=== PATIENT | female | born 1940 | race Caucasian/White ===

== ENCOUNTER 2016-03-09 15:41 | Observation (INO) | payer OTHER ==
[2016-03-09] VITALS (9 sets, daily range): BP systolic 99–146; BP diastolic 54–74; PULSE 64–86; RESP 17–27; TEMP 98.2–98.7; O2SAT 89–98
[~2016-03-09 15:41] MED LIST: AMLO2.5T PO; BUME1TAB PO; ISOS60TA PO; LOSA25TA PO; METF500T PO; PANT40TA3 PO; PLAV75TA29 PO; TOLT1CAP PO; TRIA37.5 PO
--- NOTE | 2016-03-09 16:08 | PD ---
HPI Chief Complaint: Cold / Flu Symptoms Time Seen by Provider: 16:08 Travel History International Travel<30 days: No Contact w/Intl Traveler<30days: No Traveled to known affect area: No History of Present Illness HPI 75-year-old female with history of CAD with 2 stents placed, hypertension, diabetes, tobacco dependency, presents to the emergency department for evaluation of left-sided back and chest pain. Patient states that she has had this left back pain that has been associated with a cough over the last 2 weeks. Her cough has been nonproductive. Today the pain has begun to radiate to her anterior chest, it is constant. She cannot think of any exacerbating or alleviating factors. Patient has had some shortness of breath associated with activity. No diaphoresis or light headed feeling. Patient denies nausea, vomiting, diarrhea. She has no other symptoms to report. PFSH Past Medical History Hx Anticoagulant Therapy: Yes (PLAVIX) Cardiovascular Problems: Yes Diabetes: Yes Respiratory: Yes : 6 Para: 6 : 0 Past Surgical History Coronary Artery Bypass Graft: Yes (stent ) Social History Alcohol Use: Yes (weekends occ) Tobacco Use: Yes (1 pack q2d) Substance Use: No Allergies-Medications (Allergen,Severity, Reaction): Coded Allergies: No Known Allergies (Unverified , 01/30/16) Reported Meds & Prescriptions Reported Meds & Active Scripts Active Reported Aspirin EC (Aspirin) 81 Mg Tabdr 81 Mg PO DAILY Donepezil 5 Mg Tab 5 Mg PO HS Escitalopram (Escitalopram Oxalate) 10 Mg Tab 10 Mg PO DAILY Isosorbide Mononitrate ER (Isosorbide Mononitrate) 60 Mg Tab 60 Mg PO DAILY Pantoprazole (Pantoprazole Sodium) 40 Mg Tab 40 Mg PO DAILY Amlodipine (Amlodipine Besylate) 2.5 Mg Tab 2.5 Mg PO DAILY Tolterodine ER (Tolterodine Tartrate) 4 Mg Cap 4 Mg PO DAILY Losartan (Losartan Potassium) 25 Mg Tab 25 Mg PO DAILY Metformin (Metformin HCl) 500 Mg Tab 500 Mg PO BID With meals Bumetanide 1 Mg Tab 1 Mg PO BID Plavix (Clopidogrel Bisulfate) 75 Mg Tab 75 Mg PO DAILY Review of Systems Except as stated in HPI: all other systems reviewed are Neg Physical Exam Narrative GENERAL: Well-nourished female patient, in no acute distress SKIN: Warm and dry. HEAD: Atraumatic. Normocephalic. EYES: Pupils equal and round. No scleral icterus. No injection or drainage. ENT: No nasal bleeding or discharge. Mucous membranes pink and moist. NECK: Trachea midline. No JVD. CARDIOVASCULAR: Regular rate and rhythm. No murmur appreciated. RESPIRATORY: No accessory muscle use. Diminished to auscultation with intermittent expiratory wheeze. Breath sounds equal bilaterally. GASTROINTESTINAL: Abdomen soft, non-tender, nondistended. Hepatic and splenic margins not palpable. MUSCULOSKELETAL: No obvious deformities. No clubbing. No cyanosis. 1+ lower extremity edema. NEUROLOGICAL: Awake and alert. No obvious cranial nerve deficits. Motor grossly within normal limits. Normal speech. Data Data Last Documented VS Vital Signs Date Time Temp Pulse Resp B/P Pulse Ox O2 Delivery O2 Flow Rate FiO2 03/09/16 18:00 89 Nasal Cannula 2 03/09/16 17:01 98.5 65 27 99/54 Orders Electrocardiogram (03/09/16 16:07) Basic Metabolic Panel (Bmp) (03/09/16 16:07) B-Type Natriuretic Peptide (03/09/16 16:07) Ckmb (Isoenzyme) Profile (03/09/16 16:07) Complete Blood Count With Diff (03/09/16 16:07) Magnesium (Mg) (03/09/16 16:07) Prothrombin Time / Inr (Pt) (03/09/16 16:07) Act Partial Throm Time (Ptt) (03/09/16 16:07) Troponin I (03/09/16 16:07) Lipase (03/09/16 16:07) Chest, Single Ap (03/09/16 16:07) Ecg Monitoring (03/09/16 16:07) Bilateral Bp Monitoring (03/09/16 16:07) Iv Access Insert/Monitor (03/09/16 16:07) Oximetry (03/09/16 16:07) Oxygen Administration (03/09/16 16:07) Aspirin Chew (Aspirin Chew) (03/09/16 16:15) Sodium Chloride 0.9% Flush (Ns Flush) (03/09/16 16:15) Albuterol-Ipratropium Neb (Duoneb Neb) (03/09/16 16:15) Admit Order (Ed Use Only) (03/09/16 18:00) Urinalysis - C+S If Indicated (03/09/16 18:00) Activity Bed Rest With Brp (03/09/16 18:00) Vital Signs (Adult) Q4H (03/09/16 18:00) Cardiac Rhythm .As Directed (03/09/16 18:00) ^ Notify Dr: Other .PRN (03/09/16 18:00) ^ Notify Dr. Parameters (03/09/16 18:00) Resp Oxygen Nasal Cannula (03/09/16 ) Diet Heart Healthy (03/09/16 Dinner) Ckmb (Isoenzyme) Profile (03/09/16 19:35) Ckmb (Isoenzyme) Profile (03/09/16 22:35) Troponin I (03/09/16 19:35) Troponin I (03/09/16 22:35) Electrocardiogram (03/09/16 20:51) Electrocardiogram (03/09/16 23:51) ^ Obtain (03/09/16 18:00) Sodium Chloride 0.9% Flush (Ns Flush) (03/09/16 18:00) Sodium Chloride 0.9% Flush (Ns Flush) (03/09/16 21:00) Acetaminophen (Tylenol) (03/09/16 18:00) Ondansetron Inj (Zofran Inj) (03/09/16 18:00) Nitroglycerin Sl (Nitrostat Sl) (03/09/16 18:00) Bry Bilateral/Knee High JANNET.QSHIFT (03/09/16 18:00) Labs Laboratory Tests Test 03/09/16 16:35 White Blood Count 8.6 TH/MM3 Red Blood Count 4.63 MIL/MM3 Hemoglobin 13.9 GM/DL Hematocrit 40.5 % Mean Corpuscular Volume 87.4 FL Mean Corpuscular Hemoglobin 30.1 PG Mean Corpuscular Hemoglobin 34.4 % Concent Red Cell Distribution Width 14.5 % Platelet Count 277 TH/MM3 Mean Platelet Volume 7.4 FL Neutrophils (%) (Auto) 67.4 % Lymphocytes (%) (Auto) 21.2 % Monocytes (%) (Auto) 6.2 % Eosinophils (%) (Auto) 4.6 % Basophils (%) (Auto) 0.6 % Neutrophils # (Auto) 5.8 TH/MM3 Lymphocytes # (Auto) 1.8 TH/MM3 Monocytes # (Auto) 0.5 TH/MM3 Eosinophils # (Auto) 0.4 TH/MM3 Basophils # (Auto) 0.0 TH/MM3 CBC Comment DIFF FINAL Differential Comment Prothrombin Time 10.9 SEC Prothromb Time International 1.0 RATIO Ratio Activated Partial 26.1 SEC Thromboplast Time Sodium Level 141 MEQ/L Potassium Level 4.1 MEQ/L Chloride Level 101 MEQ/L Carbon Dioxide Level 33.0 MEQ/L Anion Gap 7 MEQ/L Blood Urea Nitrogen 16 MG/DL Creatinine 0.82 MG/DL Estimat Glomerular Filtration 68 ML/MIN Rate Random Glucose 102 MG/DL Calcium Level 9.4 MG/DL Magnesium Level 2.2 MG/DL Total Creatine Kinase 43 U/L Troponin I LESS THAN 0.02 NG/ML B-Type Natriuretic Peptide 74 PG/ML Lipase 151 U/L [facility] Medical Decision Making Medical Screen Exam Complete: Yes Emergency Medical Condition: Yes Medical Record Reviewed: Yes Differential Diagnosis ACS versus chest wall pain versus pleuritis versus pneumonia versus COPD exacerbation Narrative Course 75-year-old female presents versus permanent for evaluation of left back pain radiating to her anterior chest. Patient appears without distress. She does have some inspiratory wheeze with diminished breath sounds. She is given DuoNeb treatment. Patient states that the chest pain has not resolved. EKG is reviewed been my attending physician, without acute ST elevation or depression. CBC and BMP are without acute concern. Troponins less than 0.02. BNP is 74. Lipase is 151. I discussed the patient with my attending physician and her family. With an essentially negative workup, admission to chest pain unit for further evaluation would be in her best interest. 1950 I received a call from FELIZ Scanlon and the chest pain center. She states that her and Dr. Humphreys feel the patient would best benefit from admission to medicine rather than the chest pain center. I discussed the patient with Dr. Alfaro, patient will be transferred to her service.. Diagnosis Primary Impression: Atypical chest pain Additional Impressions: Left-sided back pain Qualified Code: M54.6 - Left-sided thoracic back pain, unspecified chronicity URI (upper respiratory infection) Qualified Code: J06.9 - Upper respiratory tract infection, unspecified type Admitting Information Admitting Physician Requests: Observation Condition: Stable Xena Mandujano Mar 09, 2016 16:08
[2016-03-09] MEDS ORDERED: SODIUM CHLORIDE 0.9% FLUSH 5 ML FLUSH IVF PRN ×2 (16:15→18:00)
[2016-03-09] MEDS ORDERED: RESP: ALBUTEROL 2.5 MG/IPRATROPIUM 0.5 MG NEB (SCH) NEB ONE ×2 (16:15→19:45)
[2016-03-09] MEDS ORDERED: ASPIRIN 81 MG CHEW TAB PO ONE (16:15)
--- NOTE | 2016-03-09 16:45 | RADRPT ---
EXAM DATE/TIME: 03/09/2016 16:12 [facility] COMPARISON: CHEST SINGLE AP, October 23, 2015, 17:58. INDICATIONS : Left sided chest pain. MEDICAL HISTORY : None. SURGICAL HISTORY : Stent placement. ENCOUNTER: Initial ACUITY: 2 days PAIN SCORE: 4/10 LOCATION: Right lower chest FINDINGS: A single view of the chest demonstrates the lungs to be symmetrically aerated without evidence of mas s, infiltrate or effusion. The cardiomediastinal contours are unremarkable. Osseous structures are intact. CONCLUSION: No acute disease. Jorge Roldan MD FACR on March 09, 2016 at 16:43 Board Certified Radiologist. This report was verified electronically.
[2016-03-09] MEDS ORDERED: DONE5TAB7 PO (17:01)
[2016-03-09] MEDS ORDERED: ESCI10TA PO (17:01)
[2016-03-09] MEDS ORDERED: ASPI81TA11 PO (17:01)
[2016-03-09 17:12] LABS: AUTOMATED NEUTROPHIL # 5.8 TH/MM3 (1.8-7.7); BASOPHIL % 0.6 % (0.0-2.0); EOSINOPHIL # 0.4 TH/MM3 (0-0.4); EOSINOPHIL % 4.6 % (0.0-4.0); HEMATOCRIT 40.5 % (35.0-46.0); HEMO FLAGS DIFF FINAL; LYMPH % 21.2 % (9.0-44.0); LYMPHOCYTE # 1.8 TH/MM3 (1.0-4.8); MEAN CELL VOLUME 87.4 FL (80.0-100.0); MEAN CORPUSCULAR HEMOGLOBIN 30.1 PG (27.0-34.0); MEAN CORPUSCULAR HGB CONC 34.4 % (32.0-36.0); MONO % 6.2 % (0.0-8.0); NEUT % 67.4 % (16.0-70.0); PLATELET COUNT 277 TH/MM3 (150-450); RED BLOOD COUNT 4.63 MIL/MM3 (4.00-5.30); RED CELL DISTRIBUTION WIDTH 14.5 % (11.6-17.2); WHITE BLOOD COUNT 8.6 TH/MM3 (4.0-11.0)
[2016-03-09 17:27] LABS: APTT (PATIENT) 26.1 SEC (24.3-30.1); PROTHROMBIN TIME - PATIENT 10.9 SEC (9.8-11.6)
[2016-03-09 17:36] LABS: ANION GAP 7 MEQ/L (5-15); BLOOD UREA NITROGEN 16 MG/DL (7-18); CHLORIDE 101 MEQ/L (98-107); GLOMERULAR FILTRATION RATE 68 ML/MIN (>89); MAGNESIUM 2.2 MG/DL (1.5-2.5); POTASSIUM 4.1 MEQ/L (3.5-5.1); SODIUM (NA) 141 MEQ/L (136-145)
[2016-03-09 17:46] LABS: CREATINE KINASE 43 U/L (26-192)
[2016-03-09] MEDS ORDERED: ACETAMINOPHEN 500 MG CPLT PO PRN (18:00)
[2016-03-09] MEDS ORDERED: NITROGLYCERIN 0.4 MG SL 25 TABS/BTL SL PRN (18:00)
[2016-03-09] MEDS ORDERED: ONDANSETRON HCL 4 MG/2 ML VIAL IV PRN (18:00)
--- NOTE | 2016-03-09 19:56 | HHI.HP ---
[facility] Phys[facility] Non-Staff Admission Diagnosis atypical L sided chest pain Diagnoses: (1) Chest pain Diagnosis: Principal (2) COPD (chronic obstructive pulmonary disease) Diagnosis: Principal (3) HTN (hypertension) Diagnosis: Principal (4) DM (diabetes mellitus) Diagnosis: Principal (5) Tobacco abuse Diagnosis: Principal Travel History International Travel<30 Days: No Contact w/Intl Traveler <30 Da: No Traveled to Known Affected Are: No History of Present Illness This is a 75-year-old female with a PMH of HTN, DM, CAD, COPD and Tobacco Abuse who came to the ER with complaints of chest pain and cough x2 wks. States cough started 2wks ago, non-productive, no fever/chills. Does report occasional wheezing. Has been having chest pain associated with cough, however today chest pain was persistent. On arrival, BP 119/61, HR 86, O2 sat 96% on RA , Afebrile. While in ER, O2 sat 90-92% on RA. S/p DuoNeb w/ improvement. CBC unremarkable. Chemistry unremarkable. Troponin negative. EKG with no acute changes. Patient was to be admitted to Chest Pain Center, however we were asked to admit in light of her COPD. Review of Systems Other ROS: 14 point review of systems otherwise negative. Past Family Social History Past Medical History PMH: HTN, DM, CAD, COPD and Tobacco Abuse Past Surgical History PAST SURGICAL HISTORY: CABG Allergies: Coded Allergies: No Known Allergies (Unverified , 01/30/16) Family History PAST FAMILY HISTORY: Reviewed, positive for DM and CAD. Social History PAST SOCIAL HISTORY: Occasional alcohol. Smokes 1ppd. Negative for drugs. Physical Exam Vital Signs Vital Signs Date Time Temp Pulse Resp B/P Pulse Ox O2 Delivery O2 Flow Rate FiO2 03/09/16 18:00 89 Nasal Cannula 2 03/09/16 17:01 98.5 65 27 99/54 90 Room Air 03/09/16 16:45 94 Room Air 03/09/16 16:20 92 Room Air 03/09/16 16:20 Room Air 03/09/16 16:02 90 03/09/16 15:44 98.2 86 17 119/61 96 Physical Exam PE: GENERAL: Elderly female in no acute distress. HEENT: PERRLA, EOMI. No scleral icterus or conjunctival pallor. No lid lag or facial droop. CARDIOVASCULAR: Regular rate and rhythm. No obvious murmurs to auscultation. No chest tenderness to palpation. RESPIRATORY: No obvious rhonchi, occasional wheezing. Clear to auscultation. Breath sounds equal bilaterally. GASTROINTESTINAL: Abdomen soft, non-tender, nondistended. BS normal. MUSCULOSKELETAL: Extremities without clubbing, cyanosis, or edema. No obvious deformities. NEUROLOGICAL: Awake, alert and oriented x4. No focal neurologic deficits. Moving both upper and lower extremities spontaneously. Laboratory Laboratory Tests Test 03/09/16 16:35 White Blood Count 8.6 Red Blood Count 4.63 Hemoglobin 13.9 Hematocrit 40.5 Mean Corpuscular Volume 87.4 Mean Corpuscular Hemoglobin 30.1 Mean Corpuscular Hemoglobin 34.4 Concent Red Cell Distribution Width 14.5 Platelet Count 277 Mean Platelet Volume 7.4 Neutrophils (%) (Auto) 67.4 Lymphocytes (%) (Auto) 21.2 Monocytes (%) (Auto) 6.2 Eosinophils (%) (Auto) 4.6 Basophils (%) (Auto) 0.6 Neutrophils # (Auto) 5.8 Lymphocytes # (Auto) 1.8 Monocytes # (Auto) 0.5 Eosinophils # (Auto) 0.4 Basophils # (Auto) 0.0 CBC Comment DIFF FINAL Differential Comment Prothrombin Time 10.9 Prothromb Time International 1.0 Ratio Activated Partial 26.1 Thromboplast Time Sodium Level 141 Potassium Level 4.1 Chloride Level 101 Carbon Dioxide Level 33.0 Anion Gap 7 Blood Urea Nitrogen 16 Creatinine 0.82 Estimat Glomerular Filtration 68 Rate Random Glucose 102 Calcium Level 9.4 Magnesium Level 2.2 Total Creatine Kinase 43 Troponin I LESS THAN 0.02 B-Type Natriuretic Peptide 74 Lipase 151 Result Diagram: 03/09/16 1635 03/09/16 1635 Assessment and Plan Problem List: (1) Chest pain ICD Code: R07.9 Status: Acute (2) COPD (chronic obstructive pulmonary disease) ICD Code: J44.9 Status: Acute (3) HTN (hypertension) ICD Code: I10 Status: Acute (4) DM (diabetes mellitus) ICD Code: E11.9 Status: Acute (5) Tobacco abuse ICD Code: Z72.0 Status: Acute Assessment and Plan A/P: 1. Chest Pain: Atypical. Symptoms ongoing x2 wks, however h/o CAD will r/o ACS. Initial trop negative, EKG w/ no acute changes. Admit for Observation, place on telemetry, check serial enzymes. Resume home ASA/Plavix, start Statin. 2. COPD: Chronic Respiratory Failure w/ Acute Exacerbation. O2 sat 90-92% on RA, +wheezing s/p DuoNeb w/ some improvement. CXR w/ no acute findings, images reviewed by me. Continue Solu-Medrol, DuoNeb, Mucinex, Symbicort. 3. HTN: Borderline Hypotension w/ BP 99/54, HR. Resume home meds w/ hold parameters. Monitor BP. 4. DM: Sliding scale w/ Accu-Cheks. Hold Metformin for now. 5. Tobacco Abuse: Pt counselled. Ativan prn. No NicoDerm to avoid vasoconstriction. 6. DVT Prophylaxis: SCD/Teds. 7. Social work for d/c planning as needed. 8. Case discussed w/ ER physician at length. Maria Esther Hess MD Mar 09, 2016 19:55
[2016-03-09] MEDS ORDERED: ONDANSETRON HCL 4 MG/2 ML VIAL IVP PRN (20:00)
[2016-03-09] MEDS ORDERED: DEXTROSE 50% IN WATER 50 ML VIAL(D50) IV PUSH PRN (20:00)
[2016-03-09] MEDS ORDERED: ACETAMINOPHEN 325 MG TAB PO PRN (20:00)
[2016-03-09] MEDS ORDERED: MORPHINE SULFATE 4 MG/ML INJ IV PRN (20:00)
[2016-03-09] MEDS ORDERED: ACETAMINOPHEN/HYDROcodone 325 MG/5 MG TAB PO PRN (20:00)
[2016-03-09] MEDS ORDERED: RESP: ALBUTEROL 2.5 MG/IPRATROPIUM 0.5 MG NEB (PRN) NEB (20:00)
[2016-03-09] MEDS ORDERED: BISACODYL 10 MG SUPP PR PRN (20:00)
[2016-03-09] MEDS ORDERED: GLUCAGON 1 MG/ML VIAL OTHER PRN (20:00)
[2016-03-09] MEDS ORDERED: SODIUM CHLORIDE 0.9% FLUSH 5 ML FLUSH FLUSH PRN (20:00)
[2016-03-09] MEDS ORDERED: PILL SPLITTER OTHER PRN (20:30)
[2016-03-09 20:39] LABS: CREATINE KINASE 50 U/L (26-192)
[2016-03-09] MEDS ORDERED: SODIUM CHLORIDE 0.9% FLUSH 5 ML FLUSH IVF SCH (21:00)
[2016-03-09] MEDS ORDERED: DONEPEZIL HCL 5 MG TAB PO SCH (21:00)
[2016-03-09] MEDS: INSULIN ASPART SUPPLEMENTAL SCALE SQ SCH (22:00)
[2016-03-09 22:32] LABS: BLOOD, URINE NEG (NEG); COMMENT (UR) CULT NOT INDICATED; CULTURE IF INDICATED CULT NOT INDICATED; GLUCOSE,URINE NEG (NEG); KETONE, URINE NEG (NEG); MUCUS URINE FEW /lpf (OCC); NITRITE,URINE NEG (NEG); PH, URINE 6.5 (5.0-8.5); SQUAMOUS EPITHELIAL CELL URINE <1 /hpf (0-5); URINE COLOR YELLOW (YELLW/STRAW)
[2016-03-09] MEDS: BUDESONIDE-FORMOTEROL 160/4.5 MCG INHALER INH SCH (23:40)
[2016-03-09] MEDS: methylPREDNISolone SOD SUCC 40 MG/1 ML VIAL IV PUSH SCH (23:44)
[2016-03-09] MEDS: SODIUM CHLORIDE 0.9% FLUSH 5 ML FLUSH FLUSH SCH (23:44)
[2016-03-09] MEDS: guaiFENesin E.R. 600 MG TAB PO SCH (23:44)
[2016-03-09] MEDS: BUMETANIDE 1 MG TAB PO SCH (23:44)
[2016-03-09 23:48] LABS: CREATINE KINASE 55 U/L (26-192)
[2016-03-10 04:44] VITALS: O2SAT 93
[2016-03-10 04:47] VITALS: BP 140/78; PULSE 87; RESP 20; TEMP 98.8; O2SAT 98
[2016-03-10 05:34] LABS: BASOPHIL % 0.3 % (0.0-2.0); EOSINOPHIL % 0.4 % (0.0-4.0); HEMATOCRIT 41.2 % (35.0-46.0); HEMO FLAGS DIFF FINAL; LYMPH % 6.9 % (9.0-44.0); LYMPHOCYTE # 0.6 TH/MM3 (1.0-4.8); MEAN CORPUSCULAR HEMOGLOBIN 29.2 PG (27.0-34.0); MEAN CORPUSCULAR HGB CONC 33.6 % (32.0-36.0); MONO % 1.2 % (0.0-8.0); NEUT % 91.2 % (16.0-70.0); PLATELET COUNT 262 TH/MM3 (150-450); RED BLOOD COUNT 4.73 MIL/MM3 (4.00-5.30); RED CELL DISTRIBUTION WIDTH 14.4 % (11.6-17.2); WHITE BLOOD COUNT 8.7 TH/MM3 (4.0-11.0)
[2016-03-10 05:42] LABS: ALT (GPT) 24 U/L (10-53); ANION GAP 7 MEQ/L (5-15); AST (GOT) 13 U/L (15-37); BICARBONATE 30.4 MEQ/L (21.0-32.0); BLOOD UREA NITROGEN 18 MG/DL (7-18); CHLORIDE 103 MEQ/L (98-107); GLOMERULAR FILTRATION RATE 63 ML/MIN (>89); POTASSIUM 3.9 MEQ/L (3.5-5.1); SODIUM (NA) 140 MEQ/L (136-145)
[2016-03-10 05:44] LABS: ALKALINE PHOSPHATASE 100 U/L (45-117); TOTAL BILIRUBIN ADULT 0.3 MG/DL (0.2-1.0)
[2016-03-10] MEDS: methylPREDNISolone SOD SUCC 40 MG/1 ML VIAL IV PUSH SCH (06:00)
[2016-03-10] MEDS: INSULIN ASPART SUPPLEMENTAL SCALE SQ SCH ×2 (06:00→12:09)
[2016-03-10 07:57] VITALS: BP 130/64; PULSE 72; RESP 20; TEMP 98; O2SAT 93
--- NOTE | 2016-03-10 08:00 | HHI.PR ---
Subjective Remarks Follow-up for chest pain. Patient states that she's been having chest pain, starting in her back and radiating to her left axilla, no anterior chest discomfort. She states the pain is worse with coughing. States the cough is productive with clear sputum. She denies any fevers or chills. She states her shortness of breath has improved overnight, not yet at baseline. She follows with cardiology, Dr. Schreiber, in [place]. She states her last stress test was probably a year or 2 ago. She continues to smoke. Objective Vitals Vital Signs Date Time Temp Pulse Resp B/P Pulse Ox O2 Delivery O2 Flow Rate FiO2 03/10/16 04:47 98.8 87 20 140/78 98 03/10/16 04:44 93 21 03/09/16 23:43 98.7 78 18 134/74 94 03/09/16 22:30 66 03/09/16 20:14 92 21 03/09/16 19:00 66 26 146/74 98 Nasal Cannula 2 03/09/16 18:00 89 Nasal Cannula 2 03/09/16 18:00 64 23 128/60 03/09/16 17:01 98.5 65 27 99/54 90 Room Air 03/09/16 16:45 94 Room Air 03/09/16 16:20 92 Room Air 03/09/16 16:20 Room Air 03/09/16 16:02 90 03/09/16 15:44 98.2 86 17 119/61 96 I/O 03/09/16 03/09/16 03/09/16 03/10/16 03/10/16 03/10/16 07:00 15:00 23:00 07:00 15:00 23:00 Intake Total 480 ml Balance 480 ml Intake Oral 480 ml # Voids 1 Result Diagram: 03/10/16 0439 03/10/16 0439 Imaging Last Impressions Chest X-Ray 03/09/16 1607 Signed Impressions: Service Date/Time: Wednesday, March 09, 2016 16:12 - CONCLUSION: No acute disease. Jorge Roldan MD FACR Objective Remarks GENERAL: Well-developed well-nourished. In no acute distress. SKIN: Warm and dry. No lesions noted. HEENT: Normocephalic. Pupils equal and round. Mucous membranes pink and moist. CARDIOVASCULAR: Regular rate and rhythm. No murmur appreciated. No chest wall tenderness. RESPIRATORY: No accessory muscle use. Clear to auscultation. Breath sounds equal bilaterally. GASTROINTESTINAL: Abdomen soft, non-tender, nondistended. Bowel sounds x4. MUSCULOSKELETAL: No obvious deformities. No clubbing or cyanosis. No edema. NEUROLOGICAL: Awake and alert. No focal neurological deficits. Moves upper and lower extremities spontaneously. Normal speech. PSYCHIATRIC: Appropriate mood and affect; insight and judgment normal. A/P Problem List: (1) Chest pain ICD Code: R07.9 Status: Acute (2) COPD (chronic obstructive pulmonary disease) ICD Code: J44.9 Status: Acute (3) HTN (hypertension) ICD Code: I10 Status: Chronic (4) DM (diabetes mellitus) ICD Code: E11.9 Status: Chronic (5) Tobacco abuse ICD Code: Z72.0 Status: Chronic Assessment and Plan 75-year-old female with a PMH of HTN, DM, CAD, COPD and Tobacco Abuse who presented with complaints of chest pain and shortness of breath x2 wks Chest Pain with history of CAD: Trop negative 3. EKG w/ NSR, no significant change from previous. Wheezing has improved, however remains short of breath with occasional left chest wall pain, check stress test. Chest pain does sound pleuritic, check d-dimer, pulmonary angiogram if positive. Continue home ASA/ Plavix, started Statin. COPD: With Acute Exacerbation. Presented with O2 sat 90-92% on RA and wheezing on exam. Symptoms improving. CXR w/ no acute findings. Afebrile with no leukocytosis. Continue IV Solu-Medrol, taper. Start azithromycin. DuoNeb, Mucinex, Symbicort. HTN: Chronic, stable. Continue home meds w/ hold parameters. Monitor BP. DM: Expect higher blood glucoses on steroids. Sliding scale w/ Accu-Cheks. Hold Metformin for now. Tobacco Abuse: Patient counseled. DVT Prophylaxis: SCD/Teds. Discharge Planning Follow-up results of stress testing and d-dimer. If stress test is negative and patient's breathing continues to improve, possibly discharge later today versus tomorrow a.m. [address] Davison. Stress test shows no new ischemic changes. D- dimer within normal limits. Discharge home with azithromycin and prednisone taper. Problem Qualifiers (1) COPD (chronic obstructive pulmonary disease): Qualified Code: J44.1 - Chronic obstructive pulmonary disease with acute exacerbation (2) HTN (hypertension): Qualified Code: I10 - Essential hypertension (3) DM (diabetes mellitus): Qualified Code: E11.9 - Type 2 diabetes mellitus without complication, without long-term current use of insulin Blayne Ramirez Mar 10, 2016 08:00 Mendez Davison MD Mar 17, 2016 23:58
[2016-03-10] MEDS ORDERED: TOLTERODINE TARTRATE 4 MG CAP LA PO SCH (09:00)
[2016-03-10] MEDS ORDERED: ESCITALOPRAM OXALATE 10 MG TAB PO SCH (09:00)
[2016-03-10] MEDS ORDERED: CLOPIDOGREL 75 MG TAB PO SCH (09:00)
[2016-03-10] MEDS ORDERED: ASPIRIN EC 81 MG TABEC PO SCH (09:00)
[2016-03-10] MEDS ORDERED: PANTOPRAZOLE SOD 40 MG DELAYED RELEASE TAB PO SCH (09:00)
[2016-03-10] MEDS ORDERED: ISOSORBIDE MONONITRATE 60 MG TAB PO SCH (09:00)
[2016-03-10] MEDS ORDERED: LOSARTAN 25 MG TAB PO SCH (09:00)
[2016-03-10] MEDS: SODIUM CHLORIDE 0.9% FLUSH 5 ML FLUSH FLUSH SCH (09:00)
[2016-03-10] MEDS ORDERED: amLODIPine BESYLATE 5 MG TAB PO SCH (09:00)
[2016-03-10] MEDS ORDERED: PRAVASTATIN SOD 40 MG TAB PO SCH (09:00)
[2016-03-10 09:27] VITALS: PULSE 74
[2016-03-10] MEDS ORDERED: REGADENOSON INJ 0.4 MG/5 ML SYR ONE (09:36)
--- NOTE | 2016-03-10 09:57 | MH ---
cc: JOSHUA HUMPHREYS MD DATE OF ADMISSION: 03/09/2016 CHIEF COMPLAINT: Chest cold and chest pain. HISTORY OF PRESENT ILLNESS: This is a 75-year patient who presents to the emergency room with a "really bad cold" for one week. She has had fevers, chills, cough, nasal congestion and drainage. She reports a good appetite. Denies any nausea or vomiting. She has not been around anybody who has been ill and no recent travel. She presents to the emergency room for further evaluation as she has been trying [id number] remedies and she is not improving. She also complains of left anterior chest pain that radiates to her left scapula area that happens when she coughs or with breathing, not necessarily moving makes the pain worse. PAST MEDICAL HISTORY: 1. COPD. 2. She has one cardiac stent. 3. Diabetes. 4. Hyperlipidemia. 5. High blood pressure. FAMILY HISTORY: Noncontributory for any early onset cardiovascular disease. SOCIAL HISTORY: She is retired. Smokes a half-a-pack of cigarettes daily since the age of 18. She will occasionally drink alcohol. Denies any illegal drug use. PAST CARDIAC TESTING: She follows with Dr. Schreiber in [place] and has not had any recent stress test. Prior to that, she had a cardiac catheterization and that is when her stent was placed. She does not know where the stent was placed but believes it was only one stent. PRIMARY CARE PHYSICIAN: Her primary care provider is Dr. Ariza. ALLERGIES: SHE HAS NO ALLERGIES TO MEDICATIONS. CURRENT MEDICATIONS: 1. Losartan 25 milligrams daily. 2. Lexapro 10 milligrams daily. 3. Tolterodine Extended-Release 4 milligrams daily. 4. Metformin 500 milligrams twice a day. 5. Amlodipine 2.5 milligrams daily. 6. Bumex 1 milligram as ordered twice a day. She states she only takes it in the morning. 7. Imdur 60 milligrams daily. 8. Aspirin 81 milligrams. 9. 5 milligrams at bedtime. 10. Aspirin 75 milligrams daily. 11. Protonix 40 milligrams daily. REVIEW OF SYSTEMS: GENERAL: States just a generalized malaise and fatigue over the past week. She relates this to her cold. She has also had intermittent chills and fever, although she has not been taking her temperature. She just feels hot at times. No change in appetite. She is still drinking plenty of fluids. HEAD, EYES, EARS, NOSE, THROAT: No headache or visual changes. Reports nasal congestion and drainage. No dysphagia. CARDIOVASCULAR: As stated above. She has chest discomfort with coughing and big deep breaths on her left anterior chest. During her normal activity prior to being sick she does not have any chest discomfort with exertion. RESPIRATORY: She has continued to smoke throughout her illness this past week. She has an increase of cough, wheeze. No hemoptysis. Does have known COPD. She is not short of breath. ABDOMEN: No bowel changes. Reports good appetite. No diarrhea or constipation, pain, distention, blood in the stool or dark stool or nausea or vomiting. GENITOURINARY: No dysuria. EXTREMITIES: No lower leg edema or pain. MUSCULOSKELETAL: Reports discomfort in her left anterior chest that radiates to her back. NEUROLOGIC: No difficulty with balance, motor or sensory deficits, loss of consciousness. PSYCHIATRIC: No anxiety or depression. SKIN: No concerning lesions or rashes. PHYSICAL EXAMINATION: VITAL SIGNS: Temperature 98.5, pulse 86, respiratory 17, blood pressure 119/61 and she is 94% on room air. GENERAL: She is alert, well-nourished, well-developed in no acute distress pleasant female HEAD: Normocephalic, atraumatic. EYES: Sclerae clear. Conjunctivae are without injection. ENT: The mucous membranes are pink and moist. NECK: The neck is supple. Trachea is midline. CARDIOVASCULAR: She has a regular rate and rhythm without murmur or gallop. No JVD. S1-S2. No S3-S4. RESPIRATORY: She has inspiratory and expiratory wheezing. There are no crackles. She has some rhonchi in her upper lobes bilaterally. She is nonlabored. She has symmetrical chest rise. She is speaking in full sentences. ABDOMEN: The abdomen is soft, nontender and nondistended. Positive bowel tones. No masses. EXTREMITIES: Pulses +2 x4. There is trace pitting edema in her ankles. MUSCULOSKELETAL: Normal tone x4. She is nontender upon palpation of her chest wall. No obvious deformities. NEUROLOGIC: Cranial nerves II through XII are grossly intact. Motor strength 5/5. PSYCHIATRIC: She is alert and oriented times three and has a pleasant affect. Appropriate mood, insight and judgment. SKIN: Normal turgor, normal texture. Warm and dry. LABORATORY: CBC is unremarkable. Chemistry is also unremarkable. First set of troponins is negative. Coagulations unremarkable. IMAGING STUDIES: Chest x-ray read by radiologist has a conclusion of no acute disease. ASSESSMENT AND PLAN: 1. Chest pain. The patient has been admitted to the chest pain center and will undergo three sets of EKGs and cardiac enzymes and will be monitored overnight. Her chest discomfort most likely is related to her increase in coughing and upper respiratory symptoms. She will be seen and evaluated by Dr. Mayur Beth in the a.m. Further disposition to follow after being seen by the contact lens fitter. Discussed with the patient the likelihood of having possible stress test versus further disposition to follow after being seen by the contact lens fitter. 2. Tobacco use. She has been strongly encouraged and stressed on the importance of tobacco cessation. Discussed and counseled the patient to quit smoking. 3. Acute bronchitis. Will order respiratory treatments [id number]. I have stressed the importance of her stopping smoking. ADDENDUM: The patient will be changed to the medical service for a possible COPD exacerbation. I spoke with Xena Mcduffie, nurse practitioner regarding change from the chest pain center to hospital management. Dictated by FELIZ [place]. Joshua Humphreys MD [facility]/[place] /7:10 PM /10:33 AM
--- NOTE | 2016-03-10 10:40 | RADRPT ---
EXAM DATE/TIME: 03/10/2016 08:57 [facility] COMPARISON: None. INDICATIONS : Left back pain radiating to left chest with dyspnea. Angina. DOSE: 25.4 mCi Tc99m Myoview at stress. 8.8 mCi Tc99m Myoview at rest. 0.4 mg Lexiscan STRESS SYMPTOMS: None. EJECTION FRACTION: 68% MEDICAL HISTORY : Hypertension. Diabetes mellitus type 2. Smoker. SURGICAL HISTORY : CABG Coronary artery stent. ENCOUNTER: Initial ACUITY: 1 day PAIN SCALE: 4/10 LOCATION: Left chest TECHNIQUE: The patient underwent pharmacologic stress with infusion of prescribed dose. Continuous ECG tracing was monitored during stress. Gated SPECT imaging was performed after stress and conventional SPECT i maging was performed at rest. The examination was performed on a SPECT/CT scanner, both attenuation and non-corrected datasets were reviewed. FINDINGS: DISTRIBUTION: The maximum perfused segment at stress is in the anterolateral wall. PERFUSION STUDY: The pattern of perfusion at stress is diminished perfusion to the apex with no reversibility to sugge st ischemia. GATED STUDY: There is intact wall motion and thickening without hypokinetic or dyskinetic segments. CONCLUSION: 1. 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 2. No reversibility to suggest ischemia. 3. Preserved wall motion throughout with an estimated ejection fraction of 68%. RISK CATEGORY: Low (<1% Annual Mortality Rate) Cruz Dunham MD Board Certified Radiologist. This report was verified electronically.
[2016-03-10] MEDS: BUDESONIDE-FORMOTEROL 160/4.5 MCG INHALER INH SCH (11:33)
[2016-03-10] MEDS: guaiFENesin E.R. 600 MG TAB PO SCH (11:34)
[2016-03-10] MEDS: BUMETANIDE 1 MG TAB PO SCH (11:34)
[2016-03-10 11:44] VITALS: BP 137/67; PULSE 84; RESP 20; TEMP 97.9; O2SAT 94
[2016-03-10] MEDS ORDERED: AZITHROMYCIN 250 MG TAB PO ONE (11:45)
[2016-03-10] MEDS ORDERED: PRED5PAK PO (15:31)
[2016-03-10] MEDS ORDERED: ZITH250T PO (15:31)
[2016-03-10 15:49] VITALS: BP 120/56; PULSE 84; RESP 20; TEMP 98; O2SAT 96
[2016-03-10] MEDS ORDERED: methylPREDNISolone SOD SUCC 40 MG/1 ML VIAL IV PUSH SCH (18:00)
--- NOTE | 2016-03-10 19:28 | EKG ---
Date Performed: 03/09/2016 Time Performed: 21:51:49 PTAGE: 75 years EKG: Sinus rhythm WITH FIRST DEGREE AV BLOCK INFERIOR MYOCARDIAL INFARCTION ABNORMAL ECG PREVIOUS TRACING : 03/09/2016 19.08 DOCTOR: Freddy Trent Interpretating Date/Time 03/10/2016 19:25:22
--- NOTE | 2016-03-10 19:33 | EKG ---
Date Performed: 03/09/2016 Time Performed: 19:08:28 PTAGE: 75 years EKG: Sinus rhythm NORMAL ECG PREVIOUS TRACING : 03/09/2016 17.51 DOCTOR: Freddy Trent Interpretating Date/Time 03/10/2016 19:30:23
--- NOTE | 2016-03-10 19:35 | EKG ---
Date Performed: 03/09/2016 Time Performed: 17:51:38 PTAGE: 75 years EKG: Sinus rhythm NONSPECIFIC T-WAVE ABNORMALITY BORDERLINE ECG INTERPRETATION BASED ON A DEFAULT AGE OF 38 YEARS PREVIOUS TRACING : 10/23/2015 17.22 DOCTOR: Freddy Trent Interpretating Date/Time 03/10/2016 19:32:09
[2016-03-10] MEDS ORDERED: predniSONE 20 MG TAB PO SCH (21:00)
[2016-03-11] MEDS ORDERED: AZITHROMYCIN 250 MG TAB PO SCH (09:00)
== END 2016-03-10 17:19 | disposition home or self-care (01) ==
LOC: NEPC 15:41 → NEDA 18:04 → NEPGCP 21:43
PROVIDERS: ADMIT Internal Medicine; ATTEND Internal Medicine
DX: R07.89 Other chest pain (principal); J20.9 Acute bronchitis, unspecified; J44.1 Chronic obstructive pulmonary disease with (acute) exacerbation; J96.20 Acute and chronic respiratory failure, unspecified whether with hypoxia or hypercapnia; I10 Essential (primary) hypertension; I25.10 Atherosclerotic heart disease of native coronary artery without angina pectoris; R94.31 Abnormal electrocardiogram [ECG] [EKG]; E11.9 Type 2 diabetes mellitus without complications; E78.5 Hyperlipidemia, unspecified; F17.210 Nicotine dependence, cigarettes, uncomplicated; Z95.1 Presence of aortocoronary bypass graft; Z95.5 Presence of coronary angioplasty implant and graft; Z79.82 Long term (current) use of aspirin; Z79.84 Long term (current) use of oral hypoglycemic drugs
CPT/HCPCS: 71010; 78452; 80048; 80053; 81001; 82550; 82948; 83690; 83735; 83880; 84484; 85025; 85379; 85610; 85730; 93005; 93017; 94640; 94664; 99285; A9502; G0378; J1815; J2785; J2920

== ENCOUNTER 2016-03-29 10:18 | Emergency (ER) | payer OTHER ==
[~2016-03-29] VITALS: Ht 165.1 cm; Wt 79.0 kg
[~2016-03-29 10:18] MED LIST changes: +ASPI81TA11 PO; +DONE5TAB7 PO; +ESCI10TA PO; +PRED5PAK PO; -TRIA37.5 PO; +ZITH250T PO
[2016-03-29 10:21] VITALS: BP 144/69; PULSE 77; RESP 15; TEMP 97.8; O2SAT 97
[2016-03-29 10:31] VITALS: BP 150/71; PULSE 78; RESP 20; O2SAT 95
[2016-03-29] MEDS ORDERED: ACETAMINOPHEN/HYDROcodone 325 MG/5 MG TAB PO ONE (10:45)
--- NOTE | 2016-03-29 10:46 | PD ---
HPI Chief Complaint: Injury Time Seen by Provider: 10:35 Travel History International Travel<30 days: No Contact w/Intl Traveler<30days: No Traveled to known affect area: No History of Present Illness HPI This is a 75-year-old female who presents to the emergency department having had a fall 3 days ago in her house when she tripped and her left rib cage landed on a couch with the wooden edge. She's been having pain in her left flank ever since, constant, worse with deep breaths, improved with rest. She's been taking Tylenol but it's not getting better. She denies any other injuries. She's had multiple falls over the past several months. She does have a walker at home but doesn't use it. She has chronic heel pain and she says sometimes she steps down on her right foot and it causes her to fall. PFSH Past Medical History Hx Anticoagulant Therapy: Yes (PLAVIX) Asthma: No Blood Disorders: No Heart Rhythm Problems: No Cancer: No Cardiovascular Problems: Yes High Cholesterol: No Chest Pain: Yes Congestive Heart Failure: No COPD: Yes Diabetes: Yes Endocrine: Yes Genitourinary: No Immune Disorder: No Musculoskeletal: No Neurologic: No Psychiatric: No Reproductive: No Respiratory: Yes Sleep Apnea: Yes Thyroid Disease: No ?: Not : 6 Para: 6 : 0 Past Surgical History Body Medical Devices: Stents Coronary Artery Bypass Graft: Yes (stent ) Social History Alcohol Use: Yes (weekends occ) Tobacco Use: Yes (1 pack q2d) Substance Use: No Allergies-Medications (Allergen,Severity, Reaction): Coded Allergies: No Known Allergies (Unverified , 03/29/16) Reported Meds & Prescriptions Reported Meds & Active Scripts Active Reported Aspirin EC (Aspirin) 81 Mg Tabdr 81 Mg PO DAILY Donepezil 5 Mg Tab 5 Mg PO HS Escitalopram (Escitalopram Oxalate) 10 Mg Tab 10 Mg PO DAILY Isosorbide Mononitrate ER (Isosorbide Mononitrate) 60 Mg Tab 60 Mg PO DAILY Pantoprazole (Pantoprazole Sodium) 40 Mg Tab 40 Mg PO DAILY Amlodipine (Amlodipine Besylate) 2.5 Mg Tab 2.5 Mg PO DAILY Losartan (Losartan Potassium) 25 Mg Tab 25 Mg PO DAILY Metformin (Metformin HCl) 500 Mg Tab 500 Mg PO BID With meals Bumetanide 1 Mg Tab 1 Mg PO BID Plavix (Clopidogrel Bisulfate) 75 Mg Tab 75 Mg PO DAILY Review of Systems Except as stated in HPI: all other systems reviewed are Neg Physical Exam Narrative GENERAL:Well appearing, no acute distress SKIN: Ecchymoses over the left lateral lower rib cage HEAD: Atraumatic. Normocephalic. EYES: Pupils equal and round. No injection or drainage. ENT: Moist mucous membranes NECK: Trachea midline. CARDIOVASCULAR: Regular rate and rhythm. No murmur appreciated. Tender to palpation over the left lower rib cage. RESPIRATORY: Clear to auscultation. Breath sounds equal bilaterally. GASTROINTESTINAL: Abdomen soft, non-tender, nondistended. MUSCULOSKELETAL: No obvious deformities. NEUROLOGICAL: Awake and alert. No obvious cranial nerve deficits. Moving all extremities. PSYCHIATRIC: Appropriate mood and affect; insight and judgment normal. Data Data Last Documented VS Vital Signs Date Time Temp Pulse Resp B/P Pulse Ox O2 Delivery O2 Flow Rate FiO2 03/29/16 10:33 95 Room Air 03/29/16 10:31 78 20 150/71 03/29/16 10:21 97.8 Orders Ribs, Uni (W/Exp Cxr-Min 3vw) (03/29/16 ) Acetamin-Hydrocod 325-5 Mg (Vinson 5-325 (03/29/16 10:45) MDM Medical Decision Making Medical Screen Exam Complete: Yes Emergency Medical Condition: Yes Interpretation(s) Afebrile, no tachycardia, mild hypertension Chest x-ray: No acute process Differential Diagnosis Rib fracture, pneumothorax, hemothorax, contusion Narrative Course This is a 75-year-old female who presents to the emergency department having had a fall injuring her left side. She has pleuritic pain and bruising over the left rib cage. An x-ray was obtained which was negative for pneumothorax or hemothorax. I do suspect clinically that the patient has a rib fracture. Patient will be discharged on pain control and an incentive spirometer. I did discuss with the patient that she would benefit from outpatient physicial therapy, and to discuss this with her primary care physicain. Diagnosis Primary Impression: Rib fracture Qualified Code: S22.32XA - Closed fracture of one rib of left side, initial encounter Patient Instructions: General Instructions Additional Instructions: If you develop severe chest pain, shortness of breath, sweating, lightheadedness , dizziness or difficulty breathing return to the emergency department immediately. Followup with your primary care physician in 2-3 days if your symptoms are not improved. Med/Other Pt SpecificInfo: Prescription(s) given Scripts Hydrocodone-Acetaminophen (Lortab)5-325 Mg Tab1 Tab PO Q6H PRN (PAIN) #15 TAB Ref 0 Prov:Audrey Beal MD 03/29/16 Disposition: 01 DISCHARGE HOME Condition: Stable Audrey Beal MD Mar 29, 2016 10:45
--- NOTE | 2016-03-29 11:26 | RADRPT ---
EXAM DATE/TIME: 03/29/2016 10:57 [facility] COMPARISON: CHEST SINGLE AP, March 09, 2016, 16:12. INDICATIONS : Pain from fall on couch railing. MEDICAL HISTORY : None. SURGICAL HISTORY : None. ENCOUNTER: Initial ACUITY: 3 days PAIN SCORE: 7/10 LOCATION: Left ribs. FINDINGS: Multiple views of the left ribs were performed. There is no evidence of displaced fracture. No dest ructive lesions or areas of periosteal thickening are seen. Expiratory view of the chest is negative for pneumothorax. The mediastinal structures are midline. CONCLUSION: No acute disease. Chuy Barron MD on March 29, 2016 at 11:23 Board Certified Radiologist. This report was verified electronically.
[2016-03-29] MEDS ORDERED: HYDR-3533 PO (11:33)
[2016-03-29 12:21] VITALS: BP 149/74
== END 2016-03-29 12:22 | disposition home or self-care (01) ==
LOC: NEPE 10:18
DX: S22.32XA Fracture of one rib, left side, initial encounter for closed fracture (principal); W01.190A Fall on same level from slipping, tripping and stumbling with subsequent striking against furniture, initial encounter; Y92.009 Unspecified place in unspecified non-institutional (private) residence as the place of occurrence of the external cause
CPT/HCPCS: 71101; 94150; 99284

== ENCOUNTER 2016-09-25 14:00 | Emergency (ER) | payer OTHER, MEDICAID ==
[~2016-09-25] VITALS: Ht 165.1 cm; Wt 85.0 kg
[~2016-09-25 14:00] MED LIST changes: +HYDR-3533 PO; -PRED5PAK PO; -TOLT1CAP PO; -ZITH250T PO
[2016-09-25 14:02] VITALS: BP 123/60; PULSE 74; RESP 20; TEMP 98.5; O2SAT 99
--- NOTE | 2016-09-25 14:40 | PD ---
Physical Exam Time Seen by Provider: 14:38 Narrative 75 y/o female here for evaluation of back pain, cough Vital signs reviewed. seen at triage desk. Awaiting bed placement. Data Data Last Documented VS Vital Signs Date Time Temp Pulse Resp B/P Pulse Ox O2 Delivery O2 Flow Rate FiO2 09/25/16 14:02 98.5 74 20 123/60 99 Room Air [facility] Medical Record Reviewed: Yes Supervised Visit with CONCHA: No Arnaud Richard Sep 25, 2016 14:40
[2016-09-25 17:03] VITALS: BP 141/68; PULSE 69; RESP 18; O2SAT 96
--- NOTE | 2016-09-25 17:13 | PD ---
HPI Chief Complaint: Respiratory Symptoms Time Seen by Provider: 19:42 Travel History International Travel<30 days: No Contact w/Intl Traveler<30days: No Traveled to known affect area: No History of Present Illness HPI 75- year old female presents to the ED complaining of back pain and cough for the past week. She reports when the cough first started last week she used an over the counter medication, that she is unable to recall, but had no relief. She reports for the past week she has been using Albuterol every night which helps. She reports that she has shortness of breath with activity, but not at rest. She reports that the back pain is due to a fall she had last week, which she states is now radiating to her chest. She reports that she is lightheaded, but denies any fever, nausea, vomiting, or diarrhea. She reports her medical conditions include: COPD, DM, HTN, and Arthritis. PFSH Past Medical History Hx Anticoagulant Therapy: Yes (PLAVIX) Asthma: No Blood Disorders: No Heart Rhythm Problems: No Cancer: No Cardiovascular Problems: Yes High Cholesterol: No Chest Pain: Yes Congestive Heart Failure: No COPD: Yes Diabetes: Yes Endocrine: Yes Genitourinary: No Immune Disorder: No Musculoskeletal: No Neurologic: No Psychiatric: No Reproductive: No Respiratory: Yes Sleep Apnea: Yes Thyroid Disease: No ?: Not : 6 Para: 6 : 0 Past Surgical History Body Medical Devices: Stents Coronary Artery Bypass Graft: Yes (stent ) Social History Alcohol Use: Yes (weekends occ) Tobacco Use: Yes (1 pack q2d) Substance Use: No Allergies-Medications (Allergen,Severity, Reaction): Coded Allergies: No Known Allergies (Unverified , 09/25/16) Reported Meds & Prescriptions Reported Meds & Active Scripts Active Azithromycin 250 Mg Tab 250 Mg PO DIRECTED Take 2 tabs (500 mg) on day 1 then 1 tab daily x 4 days. Prednisone 20 Mg Tab 20 Mg PO BID Proair Hfa 8.5 GM Inh (Albuterol Sulfate) 90 Mcg/Act Aer 2 Puff INH Q4-6H PRN 108 mcg/actuation Reported Aspirin EC (Aspirin) 81 Mg Tabdr 81 Mg PO DAILY Donepezil 5 Mg Tab 5 Mg PO HS Escitalopram (Escitalopram Oxalate) 10 Mg Tab 10 Mg PO DAILY Isosorbide Mononitrate ER (Isosorbide Mononitrate) 60 Mg Tab 60 Mg PO DAILY Pantoprazole (Pantoprazole Sodium) 40 Mg Tab 40 Mg PO DAILY Amlodipine (Amlodipine Besylate) 2.5 Mg Tab 2.5 Mg PO DAILY Losartan (Losartan Potassium) 25 Mg Tab 25 Mg PO DAILY Metformin (Metformin HCl) 500 Mg Tab 500 Mg PO BID With meals Bumetanide 1 Mg Tab 1 Mg PO BID Plavix (Clopidogrel Bisulfate) 75 Mg Tab 75 Mg PO DAILY Review of Systems General / Constitutional: No: Fever, Chills, Weight Gain, Weight Loss, Other Eyes: No: Diploplia, Blurred Vision, Photophobia, Drainage, Redness, Foreign Body Sensation, Pain, Tearing, Blind Spots, Visual changes, Blindness, Other HENT: Positive: Lightheadedness, No: Headaches, Vertigo, Sore Throat, Rhinitis , Rhinorrhea, Congestion, Nosebleed, Neck Stiffness, Neck Pain, Masses, Gingival Bleeding, Dental Difficulties, Ear Discharge, Earache, Other Cardiovascular: Positive: Chest Pain or Discomfort, No: Palpitations, Irregular Rhythm, Tachycardia, Diaphoresis, Syncope, Dyspnea on exertion, Varicosities, Edema, Cyanosis, Varicosities, Phlebitis, Claudication, Other Respiratory: Positive: Cough, Shortness of Breath, No: Wheezing, Sneezing, Orthopnea, Hemoptysis, Stridor, Night Sweats, Pleuritic Pain, Other Gastrointestinal: No: Nausea, Vomiting, Diarrhea, Abdominal Pain, Hematemesis, Hematochezia, Constipation, Changes in Bowel Habits, Indigestion, Dysphagia, Loss of Appetite, Other Genitourinary: No: Urgency, Frequency, Dysuria, Nocturia, Hematuria, Decreased Urinary Output, Oliguria, Hesitancy, Dribbling, Incontinence, Pelvic Pain, Flank Pain, Dyspareunia, Discharge, Dysmenorrhea, Menorrhagia, Metorrhagia, Vaginal Bleeding, Other Musculoskeletal: No: Myalgias, Arthralgias, Limited ROM, Weakness, Cramping, Edema, Pain, Atrophy, Other Skin: No Rash, No Itching, No Dryness, No Lumps, No Hives, No Change in Pigmentation, No Change in nails, No Alopecia, No Lesions, No Breast Lumps, No Breast Tenderness, No Breast Swelling, No Other Neurologic: No: Weakness, Dizziness, Syncope, Focal Abnormalities, Coordination Problem, Tremor, Ataxia, Headache, Change in Mentation, Slurred Speech, Paresthesia, Incontinence, Seizures, Sensory Disturbance, Other Psychiatric: No: Anxiety, Depression, Suicidal Ideations, Disorder of Thought, Mood Disorder, Substance Abuse, Homicidal Ideation, Other Endocrine: No: Heat Intolerance, Cold Intolerance, Polyuria, Polydipsia, Other Hematologic/Lymphatic: No: Easy Bruising, Lymph Node Enlargement, Other Physical Exam Narrative GENERAL: SKIN: Warm and dry. HEAD: Atraumatic. Normocephalic. EYES: Pupils equal and round. No scleral icterus. No injection or drainage. ENT: No nasal bleeding or discharge. Mucous membranes pink and moist. NECK: Trachea midline. No JVD. CARDIOVASCULAR: Regular rate and rhythm. RESPIRATORY: End expiratory wheeze. No accessory muscle use. Breath sounds equal bilaterally. GASTROINTESTINAL: Abdomen soft, non-tender, nondistended. Hepatic and splenic margins not palpable. MUSCULOSKELETAL: Extremities without clubbing, cyanosis, or edema. No obvious deformities. NEUROLOGICAL: Awake and alert. No obvious cranial nerve deficits. Motor grossly within normal limits. Five out of 5 muscle strength in the arms and legs. Normal speech. PSYCHIATRIC: Appropriate mood and affect; insight and judgment normal. Data Data Last Documented VS Vital Signs Date Time Temp Pulse Resp B/P Pulse Ox O2 Delivery O2 Flow Rate FiO2 09/25/16 18:49 68 26 152/73 94 Room Air 09/25/16 14:02 98.5 Orders Electrocardiogram (09/25/16 17:22) Complete Blood Count With Diff (09/25/16 17:22) Comprehensive Metabolic Panel (09/25/16 17:22) Ckmb (Isoenzyme) Profile (09/25/16 17:22) Troponin I (09/25/16 17:22) Lipase (09/25/16 17:22) D-Dimer (09/25/16 17:22) Magnesium (Mg) (09/25/16 17:22) Chest, Single Ap (09/25/16 17:22) Iv Access Insert/Monitor (09/25/16 17:22) Ecg Monitoring (09/25/16 17:22) Oximetry (09/25/16 17:22) Methylprednisolone So Succ Inj (Solumedr (09/25/16 17:30) Albuterol Neb (Albuterol Neb) (09/25/16 17:30) Labs Laboratory Tests Test 09/25/16 17:43 White Blood Count 8.4 TH/MM3 Red Blood Count 4.34 MIL/MM3 Hemoglobin 13.2 GM/DL Hematocrit 39.1 % Mean Corpuscular Volume 90.1 FL Mean Corpuscular Hemoglobin 30.3 PG Mean Corpuscular Hemoglobin 33.7 % Concent Red Cell Distribution Width 15.3 % Platelet Count 239 TH/MM3 Mean Platelet Volume 8.3 FL Neutrophils (%) (Auto) 65.5 % Lymphocytes (%) (Auto) 21.2 % Monocytes (%) (Auto) 6.2 % Eosinophils (%) (Auto) 5.7 % Basophils (%) (Auto) 1.4 % Neutrophils # (Auto) 5.5 TH/MM3 Lymphocytes # (Auto) 1.8 TH/MM3 Monocytes # (Auto) 0.5 TH/MM3 Eosinophils # (Auto) 0.5 TH/MM3 Basophils # (Auto) 0.1 TH/MM3 CBC Comment DIFF FINAL Differential Comment D-Dimer Quantitative (PE/DVT) 0.33 MG/L FEU Sodium Level 137 MEQ/L Potassium Level 3.9 MEQ/L Chloride Level 103 MEQ/L Carbon Dioxide Level 28.4 MEQ/L Anion Gap 6 MEQ/L Blood Urea Nitrogen 19 MG/DL Creatinine 0.72 MG/DL Estimat Glomerular Filtration 79 ML/MIN Rate Random Glucose 93 MG/DL Calcium Level 9.3 MG/DL Magnesium Level 2.0 MG/DL Total Bilirubin 0.5 MG/DL Aspartate Amino Transf 15 U/L (AST/SGOT) Alanine Aminotransferase 14 U/L (ALT/SGPT) Alkaline Phosphatase 91 U/L Total Creatine Kinase 54 U/L Troponin I LESS THAN 0.02 NG/ML Total Protein 7.7 GM/DL Albumin 3.8 GM/DL Lipase 148 U/L [facility] Medical Decision Making Medical Screen Exam Complete: Yes Emergency Medical Condition: Yes Medical Record Reviewed: Yes Interpretation(s) CBC & BMP Diagram 09/25/16 17:43 troponin and CKMB negative LFTS and lipase WNL d-dimer negative4 EKG shows sinus rhythm with no sign of acute ischemia or arrhytmia. Last Impressions Chest X-Ray 09/25/16 6102 Signed Impressions: Service Date/Time: September 17:39 - CONCLUSION: 1. No acute cardiopulmonary disease. Valentino Funes MD Differential Diagnosis COPD Exacerbation Pneumonia PE Narrative Course 75-year-old female that presents to the ED for evaluation of cold-like symptoms and left-sided chest pain. Patient was properly examined and was found to have signs and symptoms consistent appears to be likely COPD exacerbation. Labs and imaging were ordered as patient does complain some left chest pain with this appears to be related more to pleurisy secondary to a cough been actual cardiac. Labs and imaging were done. EKG and troponin were essentially unremarkable. D-dimer was also negative. At this time patient will be reassured. Patient was given prescriptions for Proair, prednisone, azithromycin. Patient was told to take medications as prescribed. Follow up closely with PCP. Motrin or Tylenol for the pain. See ED for any worsening symptoms. Diagnosis Primary Impression: COPD (chronic obstructive pulmonary disease) Qualified Code: J44.1 - Chronic obstructive pulmonary disease with acute exacerbation Additional Impression: Atypical chest pain Patient Instructions: General Instructions Additional Instructions: Motrin and Tylenol for pain and fever. You can use [id number] antihistamine as well as well as Mucinex as needed for runny nose and congestion. Cough drops for cough as needed. Drink plenty of fluids. Follow-up with PCP. See ED for worsening symptoms. Stop smoking Med/Other Pt SpecificInfo: Prescription(s) given Scripts Azithromycin 250 Mg [id number] Mg PO DIRECTED #6 TAB Take 2 tabs (500 mg) on day 1 then 1 tab daily x 4 days. Prov:Mayra Carreno DO 09/25/16 Prednisone 20 Mg Tab20 Mg PO BID #10 TAB Prov:Mayra Carreno DO 09/25/16 Albuterol 8.5 GM Inh (Proair Hfa 8.5 GM Inh)90 Mcg/Act Aer2 Puff INH Q4-6H PRN ( SHORTNESS OF BREATH) #1 INHALER 108 mcg/actuation Prov:Mayra Carreno DO 09/25/16 Disposition: 01 DISCHARGE HOME Condition: Stable Kamlesh Fonseca Sep 25, 2016 17:13
[2016-09-25 17:29] VITALS: O2SAT 96
[2016-09-25] MEDS: RESP: ALBUTEROL 2.5 MG/3 ML NEB (SCH) INH (17:29)
[2016-09-25] MEDS ORDERED: methylPREDNISolone SOD SUCC 125 MG/2 ML VIAL IVP ONE (17:30)
--- NOTE | 2016-09-25 17:50 | RADRPT ---
EXAM DATE/TIME: 09/25/2016 17:39 [facility] COMPARISON: CHEST SINGLE AP, March 09, 2016, 16:12. INDICATIONS : Cough. MEDICAL HISTORY : None. SURGICAL HISTORY : Coronary artery stent. ENCOUNTER: Initial ACUITY: 1 day PAIN SCORE: 0/10 LOCATION: Bilateral chest FINDINGS: A single view of the chest demonstrates the lungs to be symmetrically aerated without evidence of mas s, infiltrate or effusion. The cardiomediastinal contours are unremarkable. Osseous structures are intact. CONCLUSION: 1. No acute cardiopulmonary disease. Valentino Funes MD on September 25, 2016 at 17:48 Board Certified Radiologist. This report was verified electronically.
[2016-09-25 18:49] VITALS: BP 152/73; PULSE 68; RESP 26; O2SAT 94
[2016-09-25 18:50] LABS: AUTOMATED NEUTROPHIL # 5.5 TH/MM3 (1.8-7.7); BASOPHIL # 0.1 TH/MM3 (0-0.2); BASOPHIL % 1.4 % (0.0-2.0); EOSINOPHIL # 0.5 TH/MM3 (0-0.4); EOSINOPHIL % 5.7 % (0.0-4.0); HEMATOCRIT 39.1 % (35.0-46.0); HEMO FLAGS DIFF FINAL; LYMPH % 21.2 % (9.0-44.0); LYMPHOCYTE # 1.8 TH/MM3 (1.0-4.8); MEAN CELL VOLUME 90.1 FL (80.0-100.0); MEAN CORPUSCULAR HEMOGLOBIN 30.3 PG (27.0-34.0); MEAN CORPUSCULAR HGB CONC 33.7 % (32.0-36.0); MONO % 6.2 % (0.0-8.0); NEUT % 65.5 % (16.0-70.0); PLATELET COUNT 239 TH/MM3 (150-450); RED BLOOD COUNT 4.34 MIL/MM3 (4.00-5.30); RED CELL DISTRIBUTION WIDTH 15.3 % (11.6-17.2); WHITE BLOOD COUNT 8.4 TH/MM3 (4.0-11.0)
[2016-09-25 18:56] LABS: ANION GAP 6 MEQ/L (5-15); AST (GOT) 15 U/L (15-37); BICARBONATE 28.4 MEQ/L (21.0-32.0); BLOOD UREA NITROGEN 19 MG/DL (7-18); CHLORIDE 103 MEQ/L (98-107); GLOMERULAR FILTRATION RATE 79 ML/MIN (>89); POTASSIUM 3.9 MEQ/L (3.5-5.1); SODIUM (NA) 137 MEQ/L (136-145)
[2016-09-25 18:57] LABS: ALT (GPT) 14 U/L (10-53)
[2016-09-25 19:01] LABS: ALKALINE PHOSPHATASE 91 U/L (45-117); TOTAL BILIRUBIN ADULT 0.5 MG/DL (0.2-1.0)
[2016-09-25 19:02] LABS: CREATINE KINASE 54 U/L (26-192)
[2016-09-25] MEDS ORDERED: AZIT250T3 PO (19:37)
[2016-09-25] MEDS ORDERED: ALBUAER3 INH (19:37)
[2016-09-25] MEDS ORDERED: PRED20 PO (19:37)
--- NOTE | 2016-09-26 11:10 | EKG ---
Date Performed: 09/25/2016 Time Performed: 17:41:44 PTAGE: 75 years EKG: Sinus rhythm INFERIOR MYOCARDIAL INFARCTION ABNORMAL ECG Since PREVIOUS TRACING , no significant change noted PREVIOUS TRACIN03/09/2016 21.51 DOCTOR: Mayur Beth Interpretating Date/Time 09/26/2016 11:09:23
== END 2016-09-25 20:09 | disposition home or self-care (01) ==
LOC: NEPD 14:00
DX: J44.1 Chronic obstructive pulmonary disease with (acute) exacerbation (principal); R07.89 Other chest pain; I25.10 Atherosclerotic heart disease of native coronary artery without angina pectoris; Z95.5 Presence of coronary angioplasty implant and graft; E11.9 Type 2 diabetes mellitus without complications; G47.33 Obstructive sleep apnea (adult) (pediatric); Z79.02 Long term (current) use of antithrombotics/antiplatelets
CPT/HCPCS: 71010; 80053; 82550; 83690; 83735; 84484; 85025; 85379; 93005; 94640; 94664; 96374; 99285; J2930; J7613

== ENCOUNTER 2016-11-06 13:38 | Day surgery (SDC) | payer OTHER ==
[~2016-11-06] VITALS: Ht 165.1 cm; Wt 83.7 kg
[~2016-11-06 13:38] MED LIST changes: +ALBUAER3 INH; +AZIT250T3 PO; -HYDR-3533 PO; +PRED20 PO
[2016-11-06] MEDS ORDERED: IOHEXOL 350 MG/ML 50 ML BTL (for Cath Lab) OTHER ONE (13:39)
[2016-11-06] MEDS ORDERED: diphenhydrAMINE HCL 50 MG CAP PO SCH (14:00)
[2016-11-06] MEDS ORDERED: NS 1000P @30 MLS/HR (KVO) IV SCH (14:00)
[2016-11-06] MEDS ORDERED: HEPARIN-NS/PF INJ 1,000 ML ONE (14:03)
[2016-11-06] MEDS ORDERED: MIDAZOLAM HCL 2 MG/2 ML VIAL ONE (14:04)
[2016-11-06] MEDS ORDERED: HEPARIN SODIUM - IV 10,000 UNITS/10 ML VIAL ONE ×2 (14:05→15:52)
[2016-11-06] MEDS ORDERED: NITROGLYCERIN INJ 5 ML ONE (14:05)
[2016-11-06] MEDS ORDERED: VERAPAMIL HCL 5 MG/2 ML VIAL ONE (14:12)
[2016-11-06 14:38] VITALS: BP 116/62; PULSE 69; RESP 17; TEMP 98.2; O2SAT 92
[2016-11-06] MEDS ORDERED: AMLO5TAB2 PO (14:42)
[2016-11-06] MEDS ORDERED: GABA100C4 PO (14:42)
[2016-11-06] MEDS ORDERED: TRIA37.5 PO (14:42)
[2016-11-06] MEDS ORDERED: VENTAER INH (14:42)
[2016-11-06] MEDS ORDERED: NITR1SUB3 SL (14:42)
[2016-11-06] MEDS ORDERED: FLEE5TAB PO (14:42)
[2016-11-06 14:43] LABS: APTT (PATIENT) 26.1 SEC (24.3-30.1); PROTHROMBIN TIME - PATIENT 11.1 SEC (9.8-11.6)
[2016-11-06 14:44] LABS: BASOPHIL % 0.6 % (0.0-2.0); EOSINOPHIL # 0.3 TH/MM3 (0-0.4); EOSINOPHIL % 4.1 % (0.0-4.0); HEMATOCRIT 41.5 % (35.0-46.0); HEMO FLAGS DIFF FINAL; LYMPH % 21.5 % (9.0-44.0); LYMPHOCYTE # 1.6 TH/MM3 (1.0-4.8); NEUT % 65.8 % (16.0-70.0); PLATELET COUNT 237 TH/MM3 (150-450); RED BLOOD COUNT 4.56 MIL/MM3 (4.00-5.30); RED CELL DISTRIBUTION WIDTH 14.9 % (11.6-17.2); WHITE BLOOD COUNT 7.5 TH/MM3 (4.0-11.0)
[2016-11-06 15:06] LABS: BICARBONATE 33.9 MEQ/L (21.0-32.0); POTASSIUM 4.3 MEQ/L (3.5-5.1)
[2016-11-06] MEDS ORDERED: SODIUM CHLOR 0.9% 1000 ML INJ 1,000 ML IV SCH (16:12)
--- NOTE | 2016-11-06 16:13 | CATHPROC ---
[facility] HIS Report Study Information Study Number Admission Scheduled Start Study Start [id number] Nov 06 2016 1:38PM 11/06/2016 Nov 06 2016 3:16PM [place] [facility] Cardiac Catheterization Admit Source Facility Department Other [facility] - Chemical Processing Supervisor Physician and Clinical Staff Initial Freddy Hutton Rubber Compounder Formulator Fang Coyle BSRN Rubber Compounder Formulator Amado Lockhart,MICHELE Other Jose Daniel BAUTISTA, Sal RecordArabella Gomez,RT(R) Scrub Rafael Sepulveda RCIS(BS) Procedures Performed Procedure Location (Site) Vessel Name Coronary Angiograms LCA Left Coronary Coronary Angiograms RCA Right Coronary L Heart Cath LV Gram-hand inj. LV LV Ventricle Equipment Time Pararescue Craftsman Description Size Mfg Part Number Used/Scraped TRANSDUCER, TRUWAVE [id number] 15:28 SLATER VIRAMONTES * Used W/STOCKCOCK *[id number] *[id number] *[id number] 15:28 [employer] PACK, CCL CUSTOM * Used *[id number] 15:28 [employer] SUPPORT, ARTERIAL ADULT 13652 *[id number] Used BAND, RADIAL COMPRESSION TR [id number] 16:03 [employer] MEDICAL 24CM Used SHORT 24 *[id number] 15:28 [employer] WIRE, 3MMJ .035 180CM 180CM Used *[id number] 15:28 NAMIC MANIFOLD, 4 PORT * Used *[id number] 15:28 [employer] OMNIPAQUE, 350 MG, 150ML 150ML [id number] Used [id number] 15:28 [place] [employer],WARM AIR CCL * Used *[id number] SHEATH, FR6 TRANSRADIAL [id number] 15:28 [employer] FR 6 Used SLENDER 10CM *[id number] History: Current Medications Medication Dosage/Unit Route Frequency Last Date/Time Taken PLAVIX Glucophage COZAAR ASA Neurontin NTG SL Albuterol Beta Rashard History: Allergies Allergy Reaction No Known Allergies lisinopril pollen extracts History: Risk Factors Family History of Hypertension Dyslipidemia Previous GA Previous Heart Failure Premature CAD Yes Yes No No Yes Prior Valve Prior PCI Prior PCIDate Prior CABG Surgery No Yes 11/24/2011 No Cerebrovascular Peripheral Artery Chronic Lung On Dialysis Diabetes Diabetes Therapy Disease Disease Disease No No No Yes Yes Oral History: Symptoms/Diagnosis Selection Items Chest pain SOB History: Stress Tests Stress or Imaging Studies Performed Yes Standard Exercise Stress Test No Stress Echo No Stress Test SPECT Stress Test SPECT Result Stress Test SPECT Ischemia Risk/Extent Yes Positive Low Stress Test CMR No Cardiac CTA Coronary Calcium Score No No History: Other Disease Selection Items CAD CHF Congenital Heart Disease Gerd HTN History: Other Current Smoker Method Packs a Day Years Used Pack Years Yes Cigarettes 1 58 58 Labs Hgb (g/dl) Hct (%) WBC (l/cumm) Platelets (thousands) 11.60-17.00 35.00-51.00 4.00-11.00 150.00-450.00 13.7 41.5 7.5 237 Glucose (mg/dl) BUN (mg/dl) Creatinine (mg/dl) BUN:Creatinine (1:x) 74.00-106.00 7.00-18.00 0.50-1.30 10.00-20.00 93 21 0.9 23.3 Na (meq/l) K (meq/l) 136.00-145.00 3.50-5.10 141 4.3 INR (PTT:PT) 0.90-1.10 1 CPK-MB (ng/ML) 0.50-3.60 Not Drawn Medication Medication Total Dose (Bolus/Oral) Medication Total Dosage/Unit 1% XYLOCAINE 5 mL FENTANYL 12.5 mcg RADIAL COCKTAIL 5 mL (Bolus) VERSED 0.5 mg Medications (Bolus/Oral) Medication Time Given Dosage/Unit Administered By Reason VERSED 11/06/2016 3:47:35 PM 0.5 mg Fang Coyle 0.5 mg VERSED given in lab by Fang Coyle BSRN in Left Antecubital via Peripheral IV. Ordered b y Freddy Trent. FENTANYL 11/06/2016 3:48:15 PM 12.5 mcg Beckie Coyley 12.5 mcg FENTANYL given in lab by Fang Coyle BSRN in Left Antecubital via Peripheral IV. Order ed by Freddy Trent. 1% XYLOCAINE 11/06/2016 3:49:43 PM 5 mL Pardeep Trentro 5 mL 1% XYLOCAINE given in lab by Freddy Trent in Right Radial via Subcutaneous. Ordered by Calixto- Xiao, Freddy. Ntg 200mcg Verapamil 2.5mg Heparin RADIAL COCKTAIL 11/06/2016 3:51:31 PM 5 mL (Bolus) Freddy Trent 2500U 5 mL (Bolus) RADIAL COCKTAIL given in lab by Freddy Trent in Right Radial via Radial. Using [Milvia ution Name]. Ordered by Freddy Trent. Reason: Ntg 200mcg Verapamil 2.5mg Heparin 2500U. Initial Case Assessment Cardiovascular HR Rhythm NIBP Chest Pain 68 sr 143/77 0 Edema Present Skin color Skin None Normal Warm Dry Circulatory - Right Pulses Dorsalis Pedis Femoral Radial 2 2 2 Scale (0,1,2,3,4,d) Circulatory - Left Pulses Dorsalis Pedis Femoral Radial 2 Scale (0,1,2,3,4,d) Neurological State Oriented to time-place- Alert Moves all extremities person Respiration - General Respiration Rate SpO2 (%) (B/min) 20 97 Chronological Log Time Study Chronological Log 15:16:14 Patient arrived via Bed. 15:16:15 Patient Name, D.O.B, / Armband Verified By R.N. 15:16:15 Consent signed by the physician and the patient and verified by the Chemical Processing Supervisor staff. 15:16:16 Pre-op and post- op instructions given; patient acknowledges understanding of instructions . 15:16:17 Verbal Stimulation=2 Physical Stimulation=2 Airway=2 Respiration=2 TOTAL=8. (0=absent, 1=l imited, 2=present) 15:16:20 Presedation assessment performed by Chemical Processing Supervisor RN. 15:16:23 Allens test performed on the right radial and ulnar artery. 15:16:28 Patient has been NPO for More than 6Hrs. 15:16:29 Skin Breakdown- 15:16:30 Patient Warmer Placed on the Table. 15:16:31 Clifford Prominences Protected 15:16:34 A # 20 IV was noted in the Antecubital (left). Grade = 0 15:16:35 History and physical on the chart or being dictated. Assessment: Initial Case, HR=68 BPM, Rhythm=sr, NWEA=026/77 mmhg, Chest Pain=0, Edema=None, Col or=Normal, Skin = Warm, Dry Right Pulses: Travis Ped=2, Femoral=2, Radial=2 15:16:39 Left Pulses: Travis Ped=2 Neurological: State=Alert, Ox3, GARCIA Respiration: Resp=20 B/min, SpO2=97 % Vitals capture started with the following parameters, Patient=Adult, Interval=5 min, Initial Pr jlcmdb=134 mmHg, 15:20:52 Deflation Rate=5 mmHg, Cuff placed on Left Arm 15:21:30 MUOH=188/77 mmhg, SpO2=90.0 %, Pain=0, Carmelo=10, Shin=2 15:26:22 Right radial and right groin prepped with 2% chlorhexidine, and draped after a 3 min. waiti ng time. 15:26:25 HR=70 bpm, NAMG=101/77 mmhg, SpO2=98.0 %, Resp=22 B/min, Pain=0, Carmelo=10, Shin=2 15:30:45 paged 15:31:04 Reference ECG taken 15:31:26 HR=69 bpm, AZFQ=799/77 mmhg, SpO2=97.0 %, Resp=36 B/min, Pain=0, Carmelo=10, Shin=2 15:32:46 Pressure channel 1 zeroed. 15:36:27 HR=72 bpm, YASN=984/83 mmhg, SpO2=96.0 %, Resp=26 B/min, Pain=0, Carmelo=10, Shin=2 15:41:26 HR=69 bpm, ETUW=843/78 mmhg, SpO2=96.0 %, Resp=50 B/min, Pain=0, Carmelo=10, Shin=2 15:46:27 HR=71 bpm, IDVW=485/74 mmhg, SpO2=97.0 %, Resp=24 B/min, Pain=0, Carmelo=10, Shin=2 15:46:39 MD arrived. 0.5 mg VERSED given in lab by Fang Coyle BSRN in Left Antecubital via Peripheral IV. Ord ered by Miley, 15:47:35 Freddy. 12.5 mcg FENTANYL given in lab by Fang Coyle BSRN in Left Antecubital via Peripheral IV. Ordered by Miley 15:48:15 Xiao, Freddy. Time Out. Correct patient, correct procedure, correct physician, power injector not loaded with contrast with surgical 15:49:04 team present. Time Out Concurred by , individual staff in procedure 15:49:40 Case Start 5 mL 1% XYLOCAINE given in lab by Freddy Trent in Right Radial via Subcutaneous. Ordered b y Miley, 15:49:43 Freddy. 15:50:56 Access site was right Radial Artery. A SHEATH, FR6 TRANSRADIAL SLENDER 10CM FR 6 was advanced into the Radial (right) using the Perc utaneous 15:51:08 technique. 15:51:28 HR=69 bpm, AXAS=193/77 mmhg, SpO2=96.0 %, Resp=25 B/min, Pain=0, Carmelo=10, Shin=2 5 mL (Bolus) RADIAL COCKTAIL given in lab by Freddy Trent in Right Radial via Radial. in katerine [Solution Name]. 15:51:31 Ordered by Freddy Trent. Reason: Ntg 200mcg Verapamil 2.5mg Heparin 2500U. A JR 4.0 INFINITI CATHETER FR 5 was advanced over a wire. OMNIPAQUE, 350 MG, 150ML 150ML was us ed for 15:51:47 injections. Recorded Pressure: LV, HR=71, Condition=Condition 1 15:52:50 (Left Ventricle) LV 116/1/5 Recorded Pressure: LV, Ao, HR=70, Condition=Condition 1 15:53:18 (Left Ventricle) LV 116/7/9, (Aorta) Ao 108/56/78 15:53:24 The LV was manually injected with 10 cc's and visualized. OMNIPAQUE, 350 MG, 150ML 150ML us ed. 15:53:47 The RCA was injected and visualized at various angles. OMNIPAQUE, 350 MG, 150ML 150ML used . After removing the current catheter a JL 3.5 INFINITI CATHETER FR 5 was advanced over a WIRE, 3MMJ .035 180CM 15:54:45 180CM. 15:56:29 HR=72 bpm, UJHO=785/67 mmhg, SpO2=92.0 %, Resp=41 B/min, Pain=0, Carmelo=10, Shin=2 15:56:42 The LCA was injected and visualized at various angles. OMNIPAQUE, 350 MG, 150ML 150ML use d. Recorded Pressure: Ao, HR=69, Condition=Condition 1 15:58:18 (Aorta) Ao 123/60/86 16:02:01 HR=75 bpm, ZCRI=620/83 mmhg, SpO2=94.0 %, Resp=42 B/min, Pain=0, Carmelo=10, Shin=2 16:02:11 Catheter was removed 16:02:38 Case End 16:05:51 Catheter(s) removed without difficulty Radial Compression Device Used. 12 mLs of air placed in BAND, RADIAL COMPRESSION TR SHORT 24 2 4CM. Affected 16:05:54 hand 95 % O2 saturation. 16:06:35 Vitals capture stopped. 16:08:01 No case complications noted. 16:08:03 Cine recording checked. 16:10:02 Bedside Report will be given. 16:10:10 A Left Heart Cath was performed. 16:10:11 Patient moved to [facility] End Study - Contrast Media Used In Study Contrast Total Opened (mL) Total Used (mL) Total Wasted (mL) Omnipaque 35 35 0 End Study - Maximum Contrast Load Max Contrast Load (mL) 464.9 End Study - Radiation Exposure Fluoro Time (minutes) 3.4 End Study - Patient Disposition Complications Transferred To Interventional Outcome No Telemetry Bed No attempt made
[2016-11-06] MEDS ORDERED: MISC INFORMATION XX ONE (16:15)
[2016-11-06] MEDS ORDERED: ONDANSETRON HCL 4 MG/2 ML VIAL IVP PRN (16:15)
--- NOTE | 2016-11-07 06:43 | MA ---
cc: SHAWNA CHERRY DATE 11/06/2016 DATE OF 1940 PROCEDURE PERFORMED 1. Left heart catheterization 2. Selective right and left coronary angiography 3. Left ventriculogram INDICATION Atypical chest pain with positive stress test and a history of known coronary artery disease status post two stents in the past. APPROACH Right transradial DESCRIPTION OF PROCEDURE Consent signed. The patient was very brought into the cardiac slab installer in a fasting state. The right wrist was prepped and draped in sterile fashion using 1% lidocaine for local anesthesia and a micropuncture kit, a 6-Panamanian sheath was inserted into the right radial artery. Antispasmodic cocktail given, then selective right and left coronary angiography was performed with a JR-4 and JL- 3.5 diagnostic catheters. Angiography was taken in multiple views. Then the JR -4 diagnostic catheter was introduced through the ventricle over a wire followed by pressure recordings, left ventricular pullback. The patient tolerated the procedure well without complications. ESTIMATED BLOOD LOSS Less than 30 cc TOTAL CONTRAST USED 50 cc. The right radial access site was closed with a TR band. RESULTS 1. Right coronary artery. The right coronary is a dominant vessel giving the PDA and a PLB branch. The right coronary artery has a proximal to mid stent which is patent. There is some ISR in the midportion of the stent of about 50% . However there is YANNICK-III flow. The PLV and PDA branches are patent and without any obstructive coronary artery disease. 2. The left main is short and patent and is giving off the LAD, a small ramus vessel and the left circumflex artery. 3. The LAD is a transapical vessel, is giving off three diagonal vessels which are small and patent. He has a patent stent in its proximal segment and after the stent, there is a 60% lesion sequential. This lesion has YANNICK-III flow. 4. The left circumflex artery has minimal luminal irregularities throughout, however for the most part is patent with nonobstructive coronary artery disease. It is giving off three OM branches all which are patent. 5. Ramus. There is a small ramus vessel free of disease. CONCLUSION 1. Patent stent in the right coronary artery. 2. Patent stent in the proximal LAD. 3. Nonobstructive coronary artery disease with no progression of CAD. 4. Preserved LV systolic function. RECOMMENDATIONS The patient will go to the DOC unit for post cath care. After bed rest, if she is able to ambulate, she should be able to go home today. Regarding medications , we will continue aggressive medical management for secondary prevention of CAD. MD LAURA Santillan/CROW /4:08 PM /6:29 AM [email or web address]
--- NOTE | 2016-11-07 11:38 | EKG ---
Date Performed: 11/06/2016 Time Performed: 14:35:44 PTAGE: 76 years EKG: Sinus rhythm Possible inferior infarct - age undetermined Abnormal ECG Compared to prior tracing no significant c macho PREVIOUS TRACING : 09/25/2016 17.41 DOCTOR: Sebastian Guido Interpretating Date/Time 11/07/2016 11:36:47
== END 2016-11-06 19:11 | disposition home or self-care (01) ==
LOC: HDOC 13:38 → HDIC 13:39 → HDOC 19:11
PROVIDERS: ATTEND Radiology Vascular & Interventional Radiology
DX: R07.89 Other chest pain (principal); I25.10 Atherosclerotic heart disease of native coronary artery without angina pectoris; I10 Essential (primary) hypertension; E11.9 Type 2 diabetes mellitus without complications; J44.9 Chronic obstructive pulmonary disease, unspecified; E78.5 Hyperlipidemia, unspecified; F17.210 Nicotine dependence, cigarettes, uncomplicated; Z95.5 Presence of coronary angioplasty implant and graft; Z79.01 Long term (current) use of anticoagulants; Z79.84 Long term (current) use of oral hypoglycemic drugs; Z79.82 Long term (current) use of aspirin; Z79.51 Long term (current) use of inhaled steroids; Z79.899 Other long term (current) drug therapy
CPT/HCPCS: 80048; 85025; 85610; 85730; 93005; 93458; J1644; J2250; J3010; C1769; C1893; Q9967